=== PATIENT | female | born 1995 | race Caucasian/White ===

== ENCOUNTER 2020-11-23 07:45 | Inpatient (IN) | payer OTHER ==
[2020-11-23] MEDS ORDERED: CARBOPROST TROMETHAMINE 250 MCG/ML 1 ML AMP IM PRN (08:00)
[2020-11-23] MEDS ORDERED: METHYLERGONOVINE 0.2 MG/ML 1 ML AMP IM PRN (08:00)
[2020-11-23] MEDS: LACTATED RINGERS 1,000 ML IV SCH ×2 (08:00→14:08)
[2020-11-23] MEDS ORDERED: TERBUTALINE 1 MG/ML VIAL SQ PRN (08:00)
[2020-11-23] MEDS ORDERED: LIDOCAINE 0.5% (PF) 5 MG/ML (50 ML SDV) SQ PRN (08:00)
[2020-11-23] MEDS ORDERED: OXYTOCIN 10 UNIT/ML 1 ML VIAL IM PRN (08:00)
[2020-11-23] MEDS ORDERED: OXYTOCIN 30 UNITS/500 ML NS 30 UNIT in SALINE 1 500ML.BAG IV SCH (08:00)
[2020-11-23 08:13] LABS: Basophils % (A) 0 %; Eosinophils # (A) 0.1 k/uL (0-0.7); Eosinophils % (A) 1 %; HCT 33.3 % (34.0-46.0); HGB 11.7 gm/dL (11.4-16.0); Lymphocytes % (A) 10 %; MCH 29.3 pg (25.0-35.0); MCHC 35.1 g/dL (31.0-37.0); MCV 83.5 fL (80.0-100.0); Mean Platelet Volume 7.9; Monocytes # (A) 0.4 k/uL (0-1.0); Monocytes % (A) 4 %; Neutrophils # (A) 8.4 k/uL (1.3-7.7); Neutrophils % (A) 84 %; Platelet Count 176 k/uL (150-450); RBC 3.99 m/uL (3.80-5.40); RDW 13.4 % (11.5-15.5)
[2020-11-23] MEDS: CLINDAMYCIN 600 MG in DEXTROSE 5% IN WATER 50 ML IVPB SCH ×2 (08:27)
[2020-11-23] MEDS ORDERED: DEXAMETHASONE SOD PHOSPHATE 10 MG/ML 1 ML VIAL ONE (08:40)
[2020-11-23] MEDS ORDERED: MORPHINE SULFATE (PF) 0.3 MG/0.3 ML SYR ONE (08:40)
[2020-11-23] MEDS ORDERED: KETOROLAC 15 MG/ML 1 ML VIAL ONE (08:40)
[2020-11-23] MEDS ORDERED: PROPOFOL 10 MG/ML 20 ML VIAL IV ONE (08:40)
[2020-11-23] MEDS ORDERED: ONDANSETRON 4 MG/2 ML VIAL ONE (08:40)
[2020-11-23] MEDS ORDERED: OXYTOCIN 10 UNIT/ML 1 ML VIAL ONE (08:40)
[2020-11-23] MEDS ORDERED: HYDROmorphone (PF) 1 MG/ML ONE (08:40)
[2020-11-23] MEDS ORDERED: SUCCINYLCHOLINE CHLORIDE 100 MG/5 ML SYR IV ONE (08:40)
[2020-11-23] MEDS ORDERED: fentaNYL (PF) 50 MCG/ML 2 ML AMP ONE (08:40)
[2020-11-23] MEDS ORDERED: CITRIC ACID-SODIUM CITRATE 15 ML CUP PO ONE (09:00)
[2020-11-23] MEDS ORDERED: NALOXONE 0.4 MG/ML 1 ML VIAL IV PRN (10:02)
[2020-11-23] MEDS ORDERED: diphenhydrAMINE 50 MG/ML 1 ML VIAL IVP PRN ×2 (10:02)
[2020-11-23] MEDS ORDERED: ZOLPIDEM 5 MG TAB PO PRN (10:02)
[2020-11-23] MEDS ORDERED: diphenhydrAMINE 25 MG CAP PO PRN (10:02)
[2020-11-23] MEDS ORDERED: ONDANSETRON 4 MG/2 ML VIAL IVP PRN (10:02)
[2020-11-23] MEDS ORDERED: METOCLOPRAMIDE 5 MG/ML 2 ML VIAL IVP PRN (10:02)
[2020-11-23] MEDS ORDERED: diphenhydrAMINE 50 MG CAP PO PRN (10:02)
--- NOTE | 2020-11-23 10:08 | P.HPOB ---
History of Present Illness H&P Date: 11/23/20 Chief Complaint: Intrauterine at term: Arrest of dilation Patient is 25-year-old at 39 and 5 who sees a nurse die repairer forging. She extensively has received care through the but I have no records. Labs and verification of records have been requested. heart tones are in the 130s to 140s but with each contraction show variable decelerations down to the 90s. She relates to me that she went into labor at approximately 6 PM and her die repairer forging arrived at approximately 9:51 PM. The nurse die repairer forging she relates did some intermittent monitoring but did not check her cervix until approximate 1 AM when she checked her she noted she was almost 9 cm and artificial rupture membranes was performed. She was monitored at home with die repairer forging until approximately it sounds like 6:30 or 7 AM when she did not progress any further she was sent by private car to [facility] for evaluation. In labor and delivery, she did not make any cervical change from what was described to me. She is not complete still probably +2 station with. It is unclear why this is occurring during this since she had her last baby delivered precipitously and weight 8 lbs. 11 oz. Due to arrest of dilatation a has been offered particularly in light of the fact that she had a baby that was almost macrosomic with her last and there are variable decelerations with each contraction and I have no way of identifying when those began since she didn't get our hospital until approximately 8 AM risks/benefits/alternatives to section were discussed with the patient in detail and all questions were answered for her prior to proceeding to the operative room. Risks did include but were not limited to bleeding, infection, damage to bladder or bowel, vascular injuries, nerve damage possible need further surgeries Past medical history none past surgical history none social history none family history none ALLERGIES penicillin which she describes more as a reaction then true ALLERGY Past Medical History Past Medical History: No Reported History History of Any Multi-Drug Resistant Organisms: None Reported Past Surgical History: No Surgical Hx Reported Past Anesthesia/Blood Transfusion Reactions: No Reported Reaction Past Psychological History: No Psychological Hx Reported Smoking Status: Never smoker Past Alcohol Use History: None Reported Past Drug Use History: None Reported - Past Family History Father Family Medical History: No Reported History Medications and Allergies Home Medications Medication Instructions Recorded Confirmed Type No Known Home Medications 11/23/20 11/23/20 History Allergies Allergy/AdvReac Type Severity Reaction Status Date / Time Penicillins Allergy Rash/Hives Verified 11/23/20 07:59 Exam Osteopathic Statement: *. No significant issues noted on an osteopathic structural exam other than those noted in the History and Physical/Consult. Vital Signs Temp Pulse Resp BP 11/23/20 08:08 96.2 F L 84 18 127/73 Intake and Output 11/22/20 11/23/20 11/23/20 22:59 06:59 14:59 Other: Weight 86.183 kg - OBG Physical Exam Breast: both: normal (no masses) Abdomen: bowel sounds normal, no diffuse tenderness, no bruit present, no guarding noted, no hepatomegaly, no splenomegaly, no mass Vulva: both: normal Vagina: normal moisture, no discharge Cervix: no lesion, no discharge Uterus: normal size, normal contour Adnexa: both: normal Anus/Rectum: normal perianal skin, no rectal mass, no hemorrhoids, heme negative Results Result Diagrams: 11/23/20 08:02 Abnormal Lab Results - Last 24 Hours (Table) 11/23/20 Range/Units 08:02 Hct 33.3 L (34.0-46.0) % Neutrophils # 8.4 H (1.3-7.7) k/uL
--- NOTE | 2020-11-23 10:11 | P.OP ---
Date of Procedure: 11/23/20 Preoperative Diagnosis: Intrauterine at term: Arrest of dilatation Postoperative Diagnosis: Same Procedure(s) Performed: Primary low transverse section Anesthesia: CON, spinal Surgeon: Ryan García Travel Rn #1: Nahum Jasmine Estimated Blood Loss (ml): 300 IV fluids (ml): 1,000 Urine output (ml): 100 Pathology: none sent Condition: stable Disposition: floor Operative Findings: Viable scores 9 and 9 at one and 5 minutes respectively and the weight was 7 lbs. 14 oz. Description of Procedure: Patient was taken to the operating suite where he's I'll anesthetic was found to be inadequate. Despite waiting approximately 10 minutes she did not really have any numbing sensation and even touching down onto her thighs resulting in acute pain. Due to this failure she was put under a general anesthetic. Immediately upon placement of the intubation tube and verification of its position a Pfannenstiel skin incision was made. This incision was then carried through to underlying layer of the fascia was second knife the fascia was nicked in the midline. This opening was then extended laterally with Rosales scissors. The superior and inferior aspect of this incision were then grasped tented up and bluntly and sharply dissected off the rectus muscles. Rectus muscles were then divided the midline and blunt dissection the peritoneum was done. This opening was then extended superiorly and inferiorly with good visualization of both bowel bladder. Bladder blade was then placed and the bladder flap identified. It was entered sharply with Metzenbaums scissors and bluntly dissected out of the operative field. Knife was then used to incise uterus this opening was fully developed with a hemostat and then extended bluntly. Head was easily brought into the incision line and delivered nuchal cord 1 was noted and easily reduced. Anterior posterior shoulders were then easily delivered followed by the remainder the baby. Umbilical cord was then clamped cut usual fashion an nursery personnel was present to assume care. Placenta was then delivered intact and Pitocin was added to the IV. Uterus was then exteriorized cleared of clots and debris and closed in 2 layers with 0 Vicryl suture. Once excellent hemostasis was obtained blood and debris was suctioned the posterior cul-de-sac and the uterus was reinserted into the abdomen. Peritoneal layer was then reapproximated with 0 Vicryl suture. Fascial layer was closed with 0 Vicryl suture. One layer of 3-0 Vicryl was placed in a subcuticular tissues to reapproximate the skin and close the space. Skin was then closed with 3-0 Vicryl subcuticular. Sponge, lap, needle counts were all correct 2. Patient was then taken to the recovery room in stable and satisfactory condition.
[2020-11-23] MEDS ORDERED: LACTATED RINGERS 1,000 ML IV SCH (10:15)
[2020-11-23] MEDS ORDERED: HYDROmorphone PCA 10 MG/50 ML BAG IV PRN (11:00)
[2020-11-23] MEDS: KETOROLAC 15 MG/ML 1 ML VIAL IVP SCH ×2 (13:47→20:24)
[2020-11-23] MEDS: SENNOSIDES-DOCUSATE SODIUM 1 EACH TAB PO SCH (20:24)
[2020-11-24] MEDS: LACTATED RINGERS 1,000 ML IV SCH ×2 (01:21→19:37)
[2020-11-24] MEDS: CLINDAMYCIN 600 MG in DEXTROSE 5% IN WATER 50 ML IVPB SCH ×2 (01:24)
[2020-11-24] MEDS: KETOROLAC 15 MG/ML 1 ML VIAL IVP SCH ×2 (05:25→09:15)
[2020-11-24] MEDS ORDERED: HYDROcodone/APAP 5-325MG 1 EACH TAB PO PRN ×2 (06:22)
--- NOTE | 2020-11-24 06:23 | P.PNOBGPC ---
Subjective - Subjective Principal diagnosis: Postop day 1 Interval history: Patient is doing very well. She is ambulating, voiding tolerating her diet. She voices no complaint. She has not used her HIDE OR SKIN BUFFER was therefore discontinued and switched to by mouth pain medications. All other questions are answered for her at this time. Objective - Vital Signs Latest vital signs: Vital Signs Temp Pulse Resp BP BP Pulse Ox 11/24/20 04:00 98.6 F 66 18 120/55 11/24/20 00:00 98.0 F 73 18 106/54 100 11/23/20 20:00 98 F 73 18 106/54 11/23/20 16:00 96.5 F L 99 16 138/77 97 11/23/20 12:00 97.2 F L 82 15 128/65 11/23/20 11:40 97.2 F L 82 16 130/65 11/23/20 11:10 97.2 F L 82 16 128/65 11/23/20 10:40 84 16 127/64 98 11/23/20 10:25 96 16 136/71 98 11/23/20 10:10 96 16 131/75 97 11/23/20 09:55 98 15 132/74 99 11/23/20 09:40 97 F L 113 H 18 143/74 97 11/23/20 08:08 96.2 F L 84 18 127/73 Intake and Output 11/23/20 11/23/20 11/24/20 14:59 22:59 06:59 Intake Total 500 Output Total 432 913 6363 Balance 400 -350 -1000 Intake: Intake, IV Titration 500 Amount Oxytocin 30 Units/500 ml 500 Ns 30 unit In Saline 1 500ml.bag @ Per Protocol IV .Q0M [facility] Rx#:[id number] Output: Urine 090 120 7117 Uretheral (Montiel) 350 Other: # Voids 1 Weight 86.183 kg - Labs Labs: Abnormal Lab Results - Last 24 Hours (Table) 11/23/20 Range/Units 08:02 Hct 33.3 L (34.0-46.0) % Neutrophils # 8.4 H (1.3-7.7) k/uL
[2020-11-24 06:50] LABS: Basophils % (A) 0 %; Eosinophils % (A) 0 %; HCT 27.9 % (34.0-46.0); Lymphocytes # (A) 1.4 k/uL (1.0-4.8); Lymphocytes % (A) 24 %; MCHC 32.6 g/dL (31.0-37.0); MCV 85.8 fL (80.0-100.0); Mean Platelet Volume 8.5; Monocytes # (A) 0.4 k/uL (0-1.0); Monocytes % (A) 8 %; Neutrophils # (A) 3.8 k/uL (1.3-7.7); Neutrophils % (A) 66 %; Platelet Count 118 k/uL (150-450); RBC 3.25 m/uL (3.80-5.40); RDW 13.7 % (11.5-15.5); WBC 5.7 k/uL (3.8-10.6)
[2020-11-24 06:52] LABS: HGB 9.1 gm/dL (11.4-16.0)
[2020-11-24] MEDS: SENNOSIDES-DOCUSATE SODIUM 1 EACH TAB PO SCH ×2 (09:15→20:09)
--- NOTE | 2020-11-24 11:36 | P.PN ---
Progress Note - Text Anesthesia POD 1. Patient is status post section under spinal anesthesia with conversion to general endotracheal anesthesia with intra-thecal preservative free morphine 300 g. No pruritus, good post-op analgesia, and no headaches or other sequelae.
[2020-11-24] MEDS ORDERED: ACETAMINOPHEN TAB 500 MG TAB PO PRN (13:01)
[2020-11-24] MEDS: IBUPROFEN 600 MG TAB PO SCH ×3 (15:43→23:22)
[2020-11-24 23:46] VITALS: RESP 18
[2020-11-25] MEDS: IBUPROFEN 600 MG TAB PO SCH (06:03)
[2020-11-25] MEDS: SENNOSIDES-DOCUSATE SODIUM 1 EACH TAB PO SCH (07:59)
[2020-11-25 08:13] VITALS: BP 132/77; PULSE 74; TEMP 98.2
--- NOTE | 2020-12-02 17:00 | P.DS ---
Providers Date of admission: 11/23/20 07:45 Expected date of discharge: 12/02/20 Attending physician: Ryan García Primary care physician: Stated None Hospital Course: Patient was seen and evaluated and was doing well. She was discharged home on postop day 2 with instructions follow with myself in approximately 1 week. Incision was clean dry and intact and vital signs were stable. Her heart was regular, lungs are clear, extremities without pain. Discharge instructions were thoroughly reviewed with the patient and all questions were answered for her prior to her discharge. Medications were forwarded to her pharmacy as well. Miguel Angel arita is stable for discharge post op day 2. Patient Condition at Discharge: Good Plan - Discharge Summary New Discharge Prescriptions: New Ibuprofen [Motrin] 600 mg PO Q6HR PRN #30 tab PRN Reason: Pain HYDROcodone/APAP 5-325MG [[place] 5-325] 1 tab PO Q4HR PRN #30 tab PRN Reason: Pain Discharge Medication List HYDROcodone/APAP 5-325MG [[place] 5-325] 1 tab PO Q4HR PRN #30 tab 11/25/20 [Rx] Ibuprofen [Motrin] 600 mg PO Q6HR PRN #30 tab 11/25/20 [Rx] Follow up Appointment(s)/Referral(s): Ryan García DO [Doctor of Osteopathic Medicine] - 1 Week Activity/Diet/Wound Care/Special Instructions: Lifting, limit stairs and driving, and pelvic rest. If any high temperatures, heavy bleeding, or severe pain call my office no tub baths for the next 2 weeks clean incision gently twice a day and Pap dry Discharge Disposition: HOME SELF-CARE
== END 2020-11-25 10:30 | disposition home or self-care (01) | DRG 788 ==
LOC: 4FBP 07:45
PROVIDERS: ADMIT Obstetrics & Gynecology; ATTEND Obstetrics & Gynecology
PROC: 10D00Z1 Extraction of Products of Conception, Low, Open Approach (ICD-10-PCS; principal; 2020-11-23 09:00)
DX: O62.3 Precipitate labor (principal); O62.0 Primary inadequate contractions; O76 Abnormality in fetal heart rate and rhythm complicating labor and delivery; Z37.0 Single live birth; Z3A.39 39 weeks gestation of pregnancy
CPT/HCPCS: 85025; 86850; 86900; 86901

== ENCOUNTER → 2022-02-01 | Outpatient (CLI) | payer OTHER ==
[2022-02-01 22:35] LABS: Gliadin AB IgA, Deaminated NEGATIVE (NEGATIVE); Gliadin AB IgA, Unit 1.6 U/mL; Gliadin AB IgG, Deaminated NEGATIVE (NEGATIVE); Gliadin AB IgG, Unit 1.3 U/mL; HIV 2 AB Non-Reactive (Non-Reactive); HIV AB P24 Non-Reactive (Non-Reactive); HIV P24 AG Non-Reactive (Non-Reactive)
[2022-02-02 05:38] LABS: Immunoglobulin E 0.94 IU/mL (0.00-114.00)
[2022-02-02 08:10] LABS: Clam IgE <0.10 kU/L; Codfish IgE <0.10 kU/L; Egg White IgE <0.10 kU/L; Peanut IgE <0.10 kU/L; Scallop IgE <0.10 kU/L; Shrimp IgE <0.10 kU/L; Soybean IgE <0.10 kU/L; Walnut IgE (Food) <0.10 kU/L
== END | disposition home or self-care (01) ==
LOC: LABWHC1 09:00
PROVIDERS: ATTEND Physician Assistant Medical
DX: R59.0 Localized enlarged lymph nodes (principal); R14.0 Abdominal distension (gaseous)
CPT/HCPCS: 36415; 82785; 83516; 85652; 86001; 86003; 86140; 87390

== ENCOUNTER → 2022-02-01 | Outpatient (CLI) | payer OTHER | END | disposition home or self-care (01) | LOC: RADMAMWWP 08:55 | PROVIDERS: ATTEND Internal Medicine | DX: Z53.9 Procedure and treatment not carried out, unspecified reason (principal) ==

== ENCOUNTER 2022-07-13 08:01 | Emergency (ER) | payer OTHER ==
--- NOTE | 2022-07-13 08:21 | ED ---
General Adult HPI - General Chief complaint: Dizziness Stated complaint: numbness, dizziness Time Seen by Provider: 07/13/22 08:10 Source: patient Mode of arrival: ambulatory Limitations: no limitations - History of Present Illness Initial comments: Dictation was produced using [employer] dictation software. please excuse any grammatical, word or spelling errors. Chief Complaint: 27-year-old female presents emergency department for multiple complaints History of Present Illness: Patient 27-year-old female she reports having had 30 pound intentional weight loss over the last 4 months. Also has of late over the last several weeks she's had perioral numbness. Patient also has disease random bouts of epigastric pain. Patient states that perioral paresthesias involving both sides of the lips and radiates down to the lower chin. Denies any fever, chills or night sweats. No cough or shortness of breath. Patient worked a 24-hour shift last night just got a for work. She came to the ER to be evaluated. She does have a primary care doctor that has not worked up her symptoms yet. Denies any numbness or paresthesias to the arms or legs. No diarrhea. The ROS documented in this emergency department record has been reviewed and confirmed by me. Those systems with pertinent positive or negative responses have been documented in the HPI. All other systems are other negative and/or noncontributory. PHYSICAL EXAM: General Impression: Alert and oriented x3, not in acute distress HEENT: Normocephalic atraumatic, extra-ocular movements intact, pupils equal and reactive to light bilaterally, mucous membranes moist. Cardiovascular: Heart regular rate and rhythm Chest: Able to complete full sentences, no retractions, no tachypnea Abdomen: abdomen soft, non-tender, non-distended, no organomegaly Musculoskeletal: Pulses present and equal in all extremities, no peripheral edema Motor: no focal deficits noted Neurological: CN II-XII grossly intact, no focal motor or sensory deficits noted Skin: Intact with no visualized rashes Psych: Normal affect and mood ED course: 27-year-old female who is well-appearing presents to the ER for perioral paresthesias and 30 pound unintentional weight loss over the last for 5 months. Nursing notes and chart review was performed My EKG interpretation: Ventricular rate 80, sinus rhythm, MO interval 152, QRS 96, QTC 410. No MO prolongation, no QTC prolongation, no ST or T-wave changes noted. Overall, this EKG is unremarkable Laboratory evaluation obtained. CBC, metabolic panel is unremarkable. Abdominal as negative. Urine hCG is negative. Patient observed in emergency department for 2 hours. Reevaluated at bedside at 955 and found to be in stable medical condition. Spinous unclear what is causing patient's symptoms however she does not appear to have any acute emergent processes. Patient is strongly advised follow-up with primary care physician for further workup. - Related Data Previous Rx's Medication Instructions Recorded HYDROcodone/APAP 5-325MG [[place] 1 tab PO Q4HR PRN #30 tab 11/25/20 5-325] Ibuprofen [Motrin] 600 mg PO Q6HR PRN #30 tab 11/25/20 Allergies Allergy/AdvReac Type Severity Reaction Status Date / Time Penicillins Allergy Rash/Hives Verified 07/13/22 08:08 Review of Systems ROS Statement: Those systems with pertinent positive or pertinent negative responses have been documented in the HPI. ROS Other: All systems not noted in ROS Statement are negative. Past Medical History Past Medical History: No Reported History History of Any Multi-Drug Resistant Organisms: None Reported Past Surgical History: Section Past Anesthesia/Blood Transfusion Reactions: No Reported Reaction Past Psychological History: No Psychological Hx Reported Smoking Status: Current some day smoker Past Alcohol Use History: None Reported Past Drug Use History: None Reported - Past Family History Father Family Medical History: No Reported History General Exam Limitations: no limitations Course Vital Signs 07/13/22 08:06 Temperature 97.5 F L Pulse Rate 93 Respiratory 20 Rate Blood Pressure 136/85 O2 Sat by Pulse 99 Oximetry Medical Decision Making - Lab Data Result diagrams: 07/13/22 08:47 07/13/22 08:47 Lab Results 07/13/22 07/13/22 07/13/22 Range/Units 08:47 08:47 08:52 WBC 5.4 (3.8-10.6) k/uL RBC 4.20 (3.80-5.40) m/uL Hgb 12.5 (11.4-16.0) gm/dL Hct 36.7 (34.0-46.0) % MCV 87.3 (80.0-100.0) fL MCH 29.8 (25.0-35.0) pg MCHC 34.1 (31.0-37.0) g/dL RDW 12.5 (11.5-15.5) % Plt Count 207 (150-450) k/uL MPV 8.0 Neutrophils % 69 % Lymphocytes % 21 % Monocytes % 7 % Eosinophils % 2 % Basophils % 0 % Neutrophils # 3.7 (1.3-7.7) k/uL Lymphocytes # 1.1 (1.0-4.8) k/uL Monocytes # 0.4 (0-1.0) k/uL Eosinophils # 0.1 (0-0.7) k/uL Basophils # 0.0 (0-0.2) k/uL Sodium 137 (137-145) mmol/L Potassium 4.0 (3.5-5.1) mmol/L Chloride 106 (98-107) mmol/L Carbon Dioxide 24 (22-30) mmol/L Anion Gap 7 mmol/L BUN 16 (7-17) mg/dL Creatinine 0.71 (0.52-1.04) mg/dL Est GFR (CKD-EPI)AfAm >90 (>60 ml/min/1.73 sqM) Est GFR (CKD-EPI)NonAf >90 (>60 ml/min/1.73 sqM) Glucose 90 (74-99) mg/dL Calcium 8.8 (8.4-10.2) mg/dL Magnesium 1.9 (1.6-2.3) mg/dL Total Bilirubin 0.5 (0.2-1.3) mg/dL AST 20 (14-36) U/L ALT 19 (4-34) U/L Alkaline Phosphatase 49 (38-126) U/L Total Protein 7.0 (6.3-8.2) g/dL Albumin 4.3 (3.5-5.0) g/dL Lipase 215 (23-300) U/L TSH 2.290 (0.465-4.680) mIU/L Urine HCG, Qual Not Detected (Not Detectd) Disposition Clinical Impression: Paresthesias Disposition: HOME SELF-CARE Condition: Good Instructions (If sedation given, give patient instructions): Paresthesia (ED) Is patient prescribed a controlled substance at d/c from ED?: No Referrals: Kalyani Lunsford MD [Primary Care Provider] - 1-2 days Time of Disposition: 10:08
[2022-07-13 08:57] LABS: Basophils % (A) 0 %; Eosinophils # (A) 0.1 k/uL (0-0.7); Eosinophils % (A) 2 %; HCT 36.7 % (34.0-46.0); HGB 12.5 gm/dL (11.4-16.0); Lymphocytes # (A) 1.1 k/uL (1.0-4.8); Lymphocytes % (A) 21 %; MCH 29.8 pg (25.0-35.0); MCHC 34.1 g/dL (31.0-37.0); MCV 87.3 fL (80.0-100.0); Monocytes # (A) 0.4 k/uL (0-1.0); Monocytes % (A) 7 %; Neutrophils # (A) 3.7 k/uL (1.3-7.7); Neutrophils % (A) 69 %; Platelet Count 207 k/uL (150-450); RDW 12.5 % (11.5-15.5); WBC 5.4 k/uL (3.8-10.6)
[2022-07-13 09:15] LABS: ALT 19 U/L (4-34); AST 20 U/L (14-36); African American GFR (CKD) >90 (>60 ml/min/1.73 sqM); Albumin 4.3 g/dL (3.5-5.0); Alkaline Phosphatase 49 U/L (38-126); Anion Gap 7 mmol/L; Blood Urea Nitrogen 16 mg/dL (7-17); Calcium 8.8 mg/dL (8.4-10.2); Carbon Dioxide 24 mmol/L (22-30); Chloride 106 mmol/L (98-107); Glucose 90 mg/dL (74-99); Lipase 215 U/L (23-300); Magnesium 1.9 mg/dL (1.6-2.3); Non-African American GFR(CKD) >90 (>60 ml/min/1.73 sqM); Sodium 137 mmol/L (137-145); Total Bilirubin 0.5 mg/dL (0.2-1.3)
[2022-07-13 10:25] VITALS: BP 132/72; PULSE 82; RESP 16; TEMP 98.1
== END 2022-07-13 10:25 | disposition home or self-care (01) ==
LOC: EC 08:01
DX: R20.2 Paresthesia of skin (principal); F17.200 Nicotine dependence, unspecified, uncomplicated; Z88.0 Allergy status to penicillin
CPT/HCPCS: 36415; 80053; 81025; 83690; 83735; 84443; 85025; 93005; 99284

== ENCOUNTER 2022-08-17 21:08 | Emergency (ER) | payer OTHER ==
[2022-08-17 21:13] VITALS: TEMP 98
[2022-08-17 21:48] LABS: Basophils % (A) 1 %; Eosinophils # (A) 0.1 k/uL (0-0.7); Eosinophils % (A) 1 %; HCT 35.8 % (34.0-46.0); HGB 12.2 gm/dL (11.4-16.0); Lymphocytes % (A) 33 %; MCH 29.1 pg (25.0-35.0); MCV 85.6 fL (80.0-100.0); Mean Platelet Volume 8.2; Monocytes # (A) 0.3 k/uL (0-1.0); Monocytes % (A) 5 %; Neutrophils # (A) 3.5 k/uL (1.3-7.7); Neutrophils % (A) 58 %; Platelet Count 234 k/uL (150-450); RBC 4.19 m/uL (3.80-5.40); RDW 12.9 % (11.5-15.5)
[2022-08-17 21:57] LABS: Partial Thromboplastin Time 24.7 sec (22.0-30.0); Prothrombin Time 10.3 sec (9.0-12.0)
[2022-08-17 21:58] LABS: ALT 21 U/L (4-34); AST 21 U/L (14-36); African American GFR (CKD) >90 (>60 ml/min/1.73 sqM); Albumin 4.4 g/dL (3.5-5.0); Alkaline Phosphatase 49 U/L (38-126); Anion Gap 7 mmol/L; Blood Urea Nitrogen 15 mg/dL (7-17); Calcium 9.4 mg/dL (8.4-10.2); Carbon Dioxide 27 mmol/L (22-30); Chloride 107 mmol/L (98-107); Glucose 82 mg/dL (74-99); Lipase 242 U/L (23-300); Magnesium 2.1 mg/dL (1.6-2.3); Non-African American GFR(CKD) >90 (>60 ml/min/1.73 sqM); Potassium 3.8 mmol/L (3.5-5.1); Sodium 141 mmol/L (137-145); Total Bilirubin 0.3 mg/dL (0.2-1.3); Total Protein 7.2 g/dL (6.3-8.2)
[2022-08-17 22:19] LABS: Appearance,Urine Clear (Clear); Bilirubin,Urine Negative (Negative); Blood,Urine Negative (Negative); Color,Urine Light Yellow; Glucose,Urine (UA) Negative (Negative); Ketones,Urine Negative (Negative); Leukocyte Esterase,Urine Moderate (Negative); Mucus,Urine Rare /hpf; Nitrite,Urine Negative (Negative); Protein,Urine Negative (Negative); RBC,Urine 2 /hpf (0-5); Specific Gravity,Urine 1.012 (1.001-1.035); Squamous Epithelial Cell,Urine 2 /hpf (0-4); Urobilinogen,Urine <2.0 mg/dL (<2.0); WBC,Urine 3 /hpf (0-5)
--- NOTE | 2022-08-17 22:28 | ED ---
General Adult HPI - General Chief complaint: Headache Stated complaint: migraine Time Seen by Provider: 08/17/22 21:15 Source: patient Mode of arrival: ambulatory Limitations: no limitations - History of Present Illness Initial comments: This is a 27-year-old female with no past medical history presents emergency department for multiple complaints. The patient stated that she has had intermittent migraine headaches over last several days and did state that she spontaneously started lactating this past week. The patient stated that her youngest child is one and a half years old and has not breast-fed in approximately one year. The patient stated that she had intermittent nausea and vomiting as well. The patient did state that she had intermittent weakness in her upper extremities and did report that she dropped items from time to time. The patient stated that the symptoms have been present on and off over the last 2 weeks but she has not followed up with any physician. The patient denied having similar episodes in the past. The patient did see her eye doctor earlier today thinking that it could be a vision problem when she was noted to have unequal pupils and she was advised to follow-up in the emergency department for further workup and evaluation. On evaluation, the patient stated that she didn't have any acute headache at this time and was comfortable. The patient denied any current nausea, vomiting as well as any lightheadedness or dizziness. - Related Data Home Medications Medication Instructions Recorded Confirmed FLUoxetine HCL [PROzac] 20 mg PO DAILY 07/13/22 07/13/22 Methylphenidate HCl [Concerta] 27 mg PO DAILY 07/13/22 07/13/22 lamoTRIgine [LaMICtal] 100 mg PO DAILY 07/13/22 07/13/22 Allergies Allergy/AdvReac Type Severity Reaction Status Date / Time Penicillins Allergy Rash/Hives Verified 07/13/22 10:13 Review of Systems ROS Statement: Those systems with pertinent positive or pertinent negative responses have been documented in the HPI. ROS Other: All systems not noted in ROS Statement are negative. Past Medical History Past Medical History: No Reported History History of Any Multi-Drug Resistant Organisms: None Reported Past Surgical History: Section Past Anesthesia/Blood Transfusion Reactions: No Reported Reaction Past Psychological History: No Psychological Hx Reported Smoking Status: Current some day smoker Past Alcohol Use History: None Reported Past Drug Use History: None Reported - Past Family History Father Family Medical History: No Reported History General Exam Limitations: no limitations General appearance: alert, in no apparent distress Head exam: Present: atraumatic, normocephalic, normal inspection Eye exam: Present: normal appearance, PERRL Pupils: Present: normal accommodation ENT exam: Present: normal exam, normal oropharynx, mucous membranes moist Neck exam: Present: normal inspection, full ROM Respiratory exam: Present: normal lung sounds bilaterally Cardiovascular Exam: Present: regular rate, normal rhythm, normal heart sounds GI/Abdominal exam: Present: soft, normal bowel sounds Extremities exam: Present: normal inspection, full ROM, normal capillary refill Back exam: Present: normal inspection, full ROM Neurological exam: Present: alert, oriented X3, CN II-XII intact Psychiatric exam: Present: normal affect, normal mood Skin exam: Present: warm, dry Course Vital Signs 08/17/22 08/17/22 08/17/22 21:10 22:00 23:00 Temperature 98 F Pulse Rate 79 79 72 Respiratory 20 16 16 Rate Blood Pressure 128/87 132/79 122/85 O2 Sat by Pulse 100 98 Oximetry 08/18/22 00:00 Temperature Pulse Rate 78 Respiratory 16 Rate Blood Pressure 108/76 O2 Sat by Pulse 98 Oximetry Medical Decision Making - Medical Decision Making Was pt. sent in by a medical professional or institution (, PA, SEPARATIONS SCIENTIST, urgent care, hospital, or shelter...) When possible be specific @ -No Did you speak to anyone other than the patient for history (EMS, parent, family, police, friend...)? What history was obtained from this source @ -Yes, patient's friend who is at the bedside Did you review nursing and triage notes (agree or disagree)? Why? @ -I reviewed and agree with nursing and triage notes Were old charts reviewed (outside hosp., previous admission, EMS record, old EKG, old radiological studies, urgent care reports/EKG's, shelter records)? Report findings @ -No old charts were reviewed Differential Diagnosis (chest pain, altered mental status, abdominal pain women, abdominal pain men, vaginal bleeding, weakness, fever, dyspnea, syncope, head ache, dizziness, GI bleed, back pain, seizure, CVA, palpatations, mental health)? @ -Headache, migraine, pituitary adenoma EKG interpreted by me (3pts min.). @ -None X-rays interpreted by me (1pt min.). @ -None done CT interpreted by me (1pt min.). @ -CT of the head was obtained was interpreted by myself showing no acute process. U/S interpreted by me (1pt. min.). @ -None done What testing was considered but not performed or refused? (CT, X-rays, U/S, labs)? Why? @ -None What meds were considered but not given or refused? Why? @ -None Did you discuss the management of the patient with other professionals (professionals i.e. DrNapoleon, PA, SEPARATIONS SCIENTIST, lab, RT, psych nurse, clinical social work aide, cafe associate, teacher, security flex utility officer, rn case mgr)? Give summary @ -No Was smoking cessation discussed for >3mins.? @ -No Was critical care preformed (if so, how long)? @ -No Were there social determinants of health that impacted care today? How? (Homelessness, low income, unemployed, alcoholism, drug addiction, transportation, low edu. Level, literacy, decrease access to med. care, group home, rehab)? @ -No Was there de-escalation of care discussed even if they declined (Discuss DNR or withdrawal of care, Hospice)? DNR status @ -No What co-morbidities impacted this encounter? (DM, HTN, Smoking, COPD, CAD, Cancer, CVA, ARF, Chemo, Hep., AIDS, mental health diagnosis, sleep apnea, morbid obesity)? @ -None Was patient admitted / discharged? Hospital course, mention meds given and route, prescriptions, significant lab abnormalities, going to OR and other pertinent info. @ -The patient continued evaluated emergency department. Physical exam, the patient was resting in bed without any acute distress. Vital signs were stable. Laboratory workup was also within normal limits. Due to the patient's sym ptoms, CT head was also obtained and was within normal limits. The patient did then complain of a headache and the patient was given a full headache cocktail and reevaluation had complete resolution of her headache. The patient had a negative workup and therefore was seems still for discharge. The patient was advised to follow-up with her primary care physician and was also given follow- up to a neurologist. The patient was advised to follow-up for further workup and evaluation and to report back to the emergency department if her headache became acutely worse. The patient was agreeable to this and all of her questions were answered. The patient was discharged home in stable condition w ith her friend. Undiagnosed new problem with uncertain prognosis? @ -No Drug Therapy requiring intensive monitoring for toxicity (Heparin, Nitro, Insulin, Cardizem)? @ -No Were any procedures done? @ -No Diagnosis/symptom? @ -Headache, NOS Acute, or Chronic, or Acute on Chronic? @ -Acute Uncomplicated (without systemic symptoms) or Complicated (systemic symptoms)? @ -Uncomplicated Side effects of treatment? @ -No Exacerbation, Progression, or Severe Exacerbation? @ -No Poses a threat to life or bodily function? How? (Chest pain, [place], HI, pneumonia, PE, COPD, DKA, ARF, appy, cholecystitis, CVA, Diverticulitis, Homicidal, Suicidal, threat to staff... and all critical care pts) @ -No - Lab Data Result diagrams: 08/17/22 21:39 08/17/22 21:39 Lab Results 08/17/22 08/17/22 08/17/22 Range/Units 21:39 21:39 21:39 WBC 6.0 (3.8-10.6) k/uL RBC 4.19 (3.80-5.40) m/uL Hgb 12.2 (11.4-16.0) gm/dL Hct 35.8 (34.0-46.0) % MCV 85.6 (80.0-100.0) fL MCH 29.1 (25.0-35.0) pg MCHC 34.0 (31.0-37.0) g/dL RDW 12.9 (11.5-15.5) % Plt Count 234 (150-450) k/uL MPV 8.2 Neutrophils % 58 % Lymphocytes % 33 % Monocytes % 5 % Eosinophils % 1 % Basophils % 1 % Neutrophils # 3.5 (1.3-7.7) k/uL Lymphocytes # 2.0 (1.0-4.8) k/uL Monocytes # 0.3 (0-1.0) k/uL Eosinophils # 0.1 (0-0.7) k/uL Basophils # 0.0 (0-0.2) k/uL PT (9.0-12.0) sec INR (<1.2) APTT (22.0-30.0) sec Sodium 141 (137-145) mmol/L Potassium 3.8 (3.5-5.1) mmol/L Chloride 107 (98-107) mmol/L Carbon Dioxide 27 (22-30) mmol/L Anion Gap 7 mmol/L BUN 15 (7-17) mg/dL Creatinine 0.74 (0.52-1.04) mg/dL Est GFR (CKD-EPI)AfAm >90 (>60 ml/min/1.73 sqM) Est GFR (CKD-EPI)NonAf >90 (>60 ml/min/1.73 sqM) Glucose 82 (74-99) mg/dL Calcium 9.4 (8.4-10.2) mg/dL Magnesium 2.1 (1.6-2.3) mg/dL Total Bilirubin 0.3 (0.2-1.3) mg/dL AST 21 (14-36) U/L ALT 21 (4-34) U/L Alkaline Phosphatase 49 (38-126) U/L Troponin I <0.012 (0.000-0.034) ng/mL Total Protein 7.2 (6.3-8.2) g/dL Albumin 4.4 (3.5-5.0) g/dL Lipase 242 (23-300) U/L Urine Color Urine Appearance (Clear) Urine pH (5.0-8.0) Ur Specific [place] (1.001-1.035) Urine Protein (Negative) Urine Glucose (UA) (Negative) Urine Ketones (Negative) Urine Blood (Negative) Urine Nitrite (Negative) Urine Bilirubin (Negative) Urine Urobilinogen (<2.0) mg/dL Ur Leukocyte Esterase (Negative) Urine RBC (0-5) /hpf Urine WBC (0-5) /hpf Ur Squamous Epith Cells (0-4) /hpf Urine Mucus (None) /hpf Urine HCG, Qual (Not Detectd) 08/17/22 08/17/22 08/17/22 Range/Units 21:39 21:45 21:45 WBC (3.8-10.6) k/uL RBC (3.80-5.40) m/uL Hgb (11.4-16.0) gm/dL Hct (34.0-46.0) % MCV (80.0-100.0) fL MCH (25.0-35.0) pg MCHC (31.0-37.0) g/dL RDW (11.5-15.5) % Plt Count (150-450) k/uL MPV Neutrophils % % Lymphocytes % % Monocytes % % Eosinophils % % Basophils % % Neutrophils # (1.3-7.7) k/uL Lymphocytes # (1.0-4.8) k/uL Monocytes # (0-1.0) k/uL Eosinophils # (0-0.7) k/uL Basophils # (0-0.2) k/uL PT 10.3 (9.0-12.0) sec INR 1.0 (<1.2) APTT 24.7 (22.0-30.0) sec Sodium (137-145) mmol/L Potassium (3.5-5.1) mmol/L Chloride (98-107) mmol/L Carbon Dioxide (22-30) mmol/L Anion Gap mmol/L BUN (7-17) mg/dL Creatinine (0.52-1.04) mg/dL Est GFR (CKD-EPI)AfAm (>60 ml/min/1.73 sqM) Est GFR (CKD-EPI)NonAf (>60 ml/min/1.73 sqM) Glucose (74-99) mg/dL Calcium (8.4-10.2) mg/dL Magnesium (1.6-2.3) mg/dL Total Bilirubin (0.2-1.3) mg/dL AST (14-36) U/L ALT (4-34) U/L Alkaline Phosphatase (38-126) U/L Troponin I (0.000-0.034) ng/mL Total Protein (6.3-8.2) g/dL Albumin (3.5-5.0) g/dL Lipase (23-300) U/L Urine Color Light Yellow Urine Appearance Clear (Clear) Urine pH 5.0 (5.0-8.0) Ur Specific [place] 1.012 (1.001-1.035) Urine Protein Negative (Negative) Urine Glucose (UA) Negative (Negative) Urine Ketones Negative (Negative) Urine Blood Negative (Negative) Urine Nitrite Negative (Negative) Urine Bilirubin Negative (Negative) Urine Urobilinogen <2.0 (<2.0) mg/dL Ur Leukocyte Esterase Moderate H (Negative) Urine RBC 2 (0-5) /hpf Urine WBC 3 (0-5) /hpf Ur Squamous Epith Cells 2 (0-4) /hpf Urine Mucus Rare H (None) /hpf Urine HCG, Qual Not Detected (Not Detectd) Disposition Clinical Impression: Headache Disposition: HOME SELF-CARE Condition: Stable Instructions (If sedation given, give patient instructions): Acute Headache (ED ) Is patient prescribed a controlled substance at d/c from ED?: No Referrals: None,Stated [Primary Care Provider] - 1-2 days Amanda Marcos MD [STAFF PHYSICIAN] - 1-2 days Time of Disposition: 00:10
[2022-08-17] MEDS ORDERED: SODIUM CHLORIDE 0.9% 1,000 ML IV ONE (23:14)
[2022-08-17] MEDS ORDERED: DEXAMETHASONE SOD PHOSPHATE 10 MG/ML 1 ML VIAL IVP STA (23:15)
[2022-08-17] MEDS ORDERED: KETOROLAC 15 MG/ML 1 ML VIAL IVP STA (23:15)
[2022-08-17] MEDS ORDERED: diphenhydrAMINE 50 MG/ML 1 ML VIAL IVP STA (23:15)
[2022-08-17] MEDS ORDERED: PROCHLORPERAZINE INJ 10 MG/2 ML VIAL IVP STA (23:15)
--- NOTE | 2022-08-18 00:09 | CT ---
EXAMINATION TYPE: CT brain wo con DATE OF EXAM: 08/17/2022 COMPARISON: None HISTORY: Headaches with new spontaneous CT DLP: 1149.4 mGycm Automated exposure control for dose reduction was used. Images of the brain obtained with no contrast. Ventricles and sulci appear normal. There is no mass effect or midline shift. No sign of intracranial hemorrhage. Calvarium is intact. There is normal aeration of the mastoids sinuses. The skull base is intact. IMPRESSION: Normal unenhanced head CT scan. No evidence of a sellar mass.
[2022-08-18 00:28] VITALS: BP 108/76; PULSE 78; RESP 16
== END 2022-08-18 01:06 | disposition home or self-care (01) ==
LOC: EC 21:08
DX: G43.909 Migraine, unspecified, not intractable, without status migrainosus (principal); F17.200 Nicotine dependence, unspecified, uncomplicated; Z88.0 Allergy status to penicillin
CPT/HCPCS: 36415; 80053; 83690; 83735; 84484; 85025; 85610; 85730; 81001; 81025; 70450; 99284; 96374; 96375 ×3; 96361; J1200; J0780; J1100; J1885

== ENCOUNTER → 2023-08-04 | Outpatient (CLI) | payer OTHER ==
--- NOTE | 2023-08-04 14:53 | US ---
EXAMINATION TYPE: US pelvic complete DATE OF EXAM: 08/04/2023 COMPARISON: NONE CLINICAL INDICATION: Female, 28 years old with history of N93.0 POSTCOITAL AND CONTACT BLEEDING; Pt s tates abnormal bleeding last two cycles TECHNIQUE: Transabdominal (TA). Transabdominal sonographic images of the pelvis were acquired. Date of LMP: 2 weeks ago EXAM MEASUREMENTS: Uterus: 8.9 x 4.6 x 5.1 cm Endometrial Stripe: 0.5 cm Right Ovary: 3.0 x 2.1 x 2.5 cm Left Ovary: 2.5 x 1.4 x 2.0 cm 1. Uterus: Anteverted Heterogeneous 2. Endometrium: wnl 3. Right Ovary: wnl 4. Left Ovary: wnl 5. Bilateral Adnexa: wnl 6. Posterior cul-de-sac: wnl IMPRESSION: 1. No acute pelvic ultrasound abnormality
== END | disposition home or self-care (01) ==
LOC: RADUSWWP 13:34
PROVIDERS: ATTEND Family Medicine
DX: N93.0 Postcoital and contact bleeding (principal)
CPT/HCPCS: 76856

== ENCOUNTER → 2024-01-24 | Outpatient (CLI) | payer OTHER ==
--- NOTE | 2024-01-25 09:57 | MR ---
EXAMINATION TYPE: MR femur/thigh LT wo con DATE OF EXAM: 01/24/2024 6:48 AM CLINICAL INDICATION:Female, 28 years old with history of M79.659 pain; PHH, Left distal thigh pain, s welling limited movement after pop and burning sensation while running. COMPARISON: None TECHNIQUE: Multiplanar, multisequence technique was utilized in order to study and pre-and post contr ast images were obtained. No contrast was given. FINDINGS: There is high inversion recovery signal along the left anterior rectus femoris muscle myotendinous ju nction with possible small hematoma present. There is edema tracking superiorly out of the field-of-v iew. The bone marrow signal intensity is within normal limits. Soft tissues are otherwise grossly unremar kable. No evidence other organizing fluid collection or soft tissue mass. Muscle volume is otherwise appropriate. IMPRESSION: Left rectus femoris myotendinous junction incomplete muscle tear
== END | disposition home or self-care (01) ==
LOC: RADMRIMAIN 06:00
PROVIDERS: ATTEND Family Medicine
DX: S76.812A Strain of other specified muscles, fascia and tendons at thigh level, left thigh, initial encounter (principal)